=== PATIENT | female | born 2005 | race Caucasian/White ===

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

== ENCOUNTER 2024-01-13 11:05 | Outpatient (OUT) | payer OTHER, SELFPAY ==
--- OUTSIDE RECORDS SUMMARY | 2024-01-13 11:22 | XMS_ITS | CCD ---
Author Name Unknown Address [address] [place] [address] Organization [facility] Care Team Providers Care Learning And Development Specialist Name Role Phone LIEN SCOTT Admitting Unavailable LIEN SCOTT Attending Unavailable LIEN SCOTT Primary Care Unavailable LIEN SCOTT Admitting Unavailable LIEN SCOTT Attending Unavailable JUSTIN WILKS Consulting Unavailable LIEN SCOTT Consulting Unavailable Cary Pnieda Unavailable Lien Scott Unavailable Allergies Allergy Classification Reported Allergen(s) Allergy Type Date of Onset Reaction(s) Facility (2 sources) patient allergy list reviewed by nurse or physicia Propensity to adverse reactions 8 Comment:Done [facility] Other (2 sources) Allergies Reconciled Propensity to adverse reactions Unknown [facility] Other Medications Current Medications Medication Drug Class(es) Dates Sig (Normalized) Sig (Original) ondansetron 4 mg disintegrating oral tablet (2 sources) Serotonin-3 Receptor Antagonist Start: 09-29-2022 take 1 tablet by mouth every eight hours Ondansetron 4 MG ondansetron 4mg, 1 Tablet every 8 hours;nausea and vomiting # 10, 09/29/2022, No Refill. Active Oral every 8 hours;nausea and vomiting for 0 Sep, Active Triamcinolone (2 sources) Corticosteroid Start: 09-29-2022 Triamcinolone Acetonide 0.1% triamcinolone acetonide 0.1%, 1 application 3 times per day # 1, 09/29/2022, No Refill. Active topical 3 times per day for 0 *Pick strength-form from [employer] for [employer]* Sep, Active Problems Active Problems Problem Classification Problem Date Documented Da te Episodic/Chronic Coagulation and hemorrhagic disorders (2 sources) Henoch-Schonlein purpura; Translations: [Allergic purpura] Episodic Inflammation; infection of eye (except that caused by tuberculosis or sexually transmitteddisease) (2 sources) Conjunctivitis; Translations: [Unspecified conjunctivitis] Episodic Nausea and vomiting (2 sources) Nausea and vomiting; Translations: [Nausea with vomiting, unspecified] Episodic Other skin disorders (4 sources) Vesicular eczema of hands and/or feet; Translations: [Dyshidrosis] Onset: 04-28-2018 Episodic Past or Other Problems Problem Classification Problem Date Documented Date Episodic/Chronic Abdominal pain (2 sources) Abdominal pain; Translations: [Unspecified abdominal pain] Onset: 08-10-2013 Episodic Allergic reactions (2 sources) Allergy to insect protein; Translations: [Allergy to insects and arachnids] Onset: 08-07-2013 Episodic Fever of unknown origin (2 sources) Fever; Translations: [Fever, unspecified] Onset: 08-08-2013 Episodic Immunizations and screening for infectious disease (1 source) Contact with and (suspected) exposure to other viral communicable diseases Onset: 10-29-2021 Resolved: 10-29-2021 Episodic Other connective tissue disease (4 sources) Enthesopathy, unspecified; Translations: [ENTHESOPATHY UNSPECIFIED] Onset: 12-22-2018 Episodic Other connective tissue disease (2 sources) Tendinitis AND/OR tenosynovitis of wrist AND/OR hand; Translations: [Other tenosynovitis of hand and wrist] Onset: 10-25-2018 Episodic Other ear and sense organ disorders (2 sources) Acute otitis externa; Translations: [Acute swimmers' ear] Onset: 05-03-2017 Episodic Other non-traumatic joint disorders (1 source) Pain in right wrist; Translations: [PAIN IN RIGHT WRIST] Onset: 12-28-2018 Episodic Other skin disorders (2 sources) Eruption; Translations: [Rash and other nonspecific skin eruption] Onset: 08-07-2013 Episodic Other upper respiratory infections (4 sources) Acute sinusitis; Translations: [Acute sinusitis, unspecified] Onset: 02-22-2014 Episodic Residual codes; unclassified (2 sources) C/O - a back symptom; Translations: [Other symptoms referable to back] Onset: 09-04-2016 Episodic Unclassified (2 sources) Urine finding; Translations: [Other nonspecific finding on examination of urine] Onset: 11-02-2013 Unclassified (2 sources) Screening - procedure intent; Translations: [Special screening for other specified conditions] Onset: 09-04-2016 Viral infection (2 sources) Viremia; Translations: [Unspecified viremia] Onset: 08-09-2013 Episodic Viral infection (1 source) COVID-19 Onset: 10-29-2021 Resolved: 10-29-2021 Results Test Name Value Interpretation Reference Range Facil ity XR WRIST RT MIN 3 Von 2018 XR WRIST RT MIN 3 [address] [place] [address] Patient: CHER JOSE Exam Date: 12/22/2018 : 2005 Gender:F Ordering : DR LIEN SCOTT Admission #: [id number] Family : Order #: [id number] CLICK HERE TO VIEW EXAM RADIOLOGY REPORT PROCEDURE: RADIOGRAPH WRIST RIGHT MIN 3 VIEWS COMPARISON: None. INDICATIONS: Chronic right wrist pain, tendonitis of right wrist, no known injury FINDINGS: BONES: No fracture, acute abnormality, or significant arthropathy. SOFT TISSUES: No visible soft tissue swelling or radiopaque foreign body. OTHER: Negative. CONCLUSION: Normal examination for a patient of this age. Dictated by: Justin Wilks M.D. on 12/22/2018 at 22:05 Approved by: Justin Wilks M.D. on 12/22/2018 at 22:06 Normal [facility] Vital Signs Date Time Vital Sign Value Performing Clinician Facility 10-29-2021 16:15-0500 Body height 172.72 cm Cary Pineda Other [facility] Other 10-29-2021 16:15-0500 Body mass index (BMI) [Ratio] 27.37 kg/m2 Cary Pineda Other [facility] Other 10-29-2021 16:15-0500 Body temperature 99.6 [degF] Cary Pineda Other [facility] Other 10-29-2021 16:15-0500 Body weight 81.65 kg Cary Pineda Other [facility] Other 10-29-2021 16:15-0500 Respiratory rate 18 /min Cary Pineda Other [facility] Other 10-29-2021 16:15-0500 SaO2% (BldA) [Mass fraction] 99 % Cary Pineda Other [facility] Other Encounters Encounter Date Encounter Type Care Provider Facility Start: 11-11-2023 End: 11-11-2023 ambulatory Lien Scott Other [facility] Other Start: 11-11-2023 Telephone encounter Lien Scott [facility] Start: 09-06-2023 End: 09-06-2023 ambulatory Lien Scott Other [facility] Other Start: 09-06-2023 Encounter for genera l adult medical examination without abnormal findings Lien Scott [facility] Start: 09-06-2023 Telephone encounter Lien Scott [facility] Start: 09-29-2022 Child health medical examination Lien Scott Other [facility] Other Start: 10-29-2021 (URG) Urgent Care Visit Cary rocha [facility] Start: 10-29-2021 End: 10-29-2021 ambulatory Cary Fregsoomond Other [facility] Other Start: 12-22-2018 End: 12-23-2018 Patient encounter procedure LIEN SCOTT Facility:[facility] Start: 12-22-2018 End: 07-06-2019 Patient encounter procedure LIEN SCOTT Facility:[facility] Immunizations Immunization Date Immunization Notes Care Provider Fa cili 09-27-2022 influenza virus vaccine, split virus (incl. purified surface antigen) Lien Scott Other [facility] Other Payers Date Payer Category Payer Unknown [id number] 1977 Unknown [id number] 1959 Unknown [id number] Social History Date Type Detail Facility Sex Assigned At [facility] Other Evaluation note 09-06-2023 Note Date & Type Note Facility 09-06-2023 Evaluation note Encounter Date Diagnosis Assessment Notes Aug, Encounter for general adult medical examination without abnormal findings (ICD-10 - Z00.00) [facility] Other Evaluation note 10-29-2021 Note Date & Type Note Facility 10-29-2021 Evaluation note Encounter Date Diagnosis Assessment Notes Oct, Contact with and (suspected) exposure to other viral communicable diseases (ICD-10 - Z20.828) Oct, COVID-19 (ICD-10 - U07.1) Drink plenty fluids, get plenty of rest. Tylenol Motrin for aches pains or fevers. You must self isolate for 10 days after the onset of your symptoms. Follow-up with your family physician if no improvement in 2 to 3 days Oct, Other Additional time spent conducting pre-visit phone call, screening for symptoms, instructions on social distancing, application and removal of PPE, and cleaning of examination room, equipment and supplies was preformed. Patient education given for testing methodology and results. Patient care instructions given in writting by [facility] Care At Home document. [facility] Other Evaluation note Note Date & Type Note Facility Evaluation note No Information [facility] Other History general Narrative - Reported Note Date & Type Note Facility History general Narrative - Reported Type Medical History Heart Murmur [facility] Other History general Narrative - Reported Note Date & Type Note Facility History general Narrative - Reported Type Medical History Heart Murmur Surgical History Problem Title : past surgical history reviewed, Problem Description : past surgical history reviewed, Problem Comment : reviewed - no changes required, Problem Status : Active, [facility] Other Summary Purpose Family History No Family History Records Found Advance Directives No Advanced Directives Records Found Additional Source Comments INFORMATION SOURCE (unrecogn ized section and content) DATE CREATED AUTHOR 07/06/2019 [employer] REASON FOR VISIT (unrecogniz ed section and content) #26 SILVER EXPLORERmessagehe p b titer FOR RECORDS PERTAINING TO PATIENTS WHO ARE OR HAVE BEEN ENROLLED IN A CHEMICAL DEPENDENCY/SUBSTANCEABUSE PROGRAM, SOME INFORMATION MAY BE OMITTED. This clinical summary was aggregated from multiple sources. Caution should be exercised in using it in the provision of clinical care. This summary normalizes information from multiple sources, and as a consequence, information in this document may materially change the coding, format and clinical context of patient data. In addition, data may be omitted in some cases. CLINICAL DECISIONS SHOULD BE BASED ON THE PRIMARY CLINICAL RECORDS. [facility] [employer] [facility]. provides no warranty or guarantee of the accuracy or completeness of information in this document.
== END 2024-01-13 11:06 | disposition home or self-care (01) ==
LOC: LAB 11:06
PROVIDERS: PCP Family Medicine; Visit Provider Family Medicine
DX: Z00.00 Encounter for general adult medical examination without abnormal findings (principal)
CPT/HCPCS: 36415; 86317

== ENCOUNTER 2024-02-14 10:54 | Outpatient (OUT) | payer OTHER, SELFPAY ==
--- OUTSIDE RECORDS SUMMARY | 2024-02-14 10:59 | XMS_ITS | CCD ---
Author Organization [facility] Care Team Providers Care Communications Electrician Supervisor Name Role Phone LIEN SCOTT Admitting Unavailable LIEN SCOTT Attending Unavailable LIEN SCOTT Primary Care Unavailable LIEN SCOTT Admitting Unavailable LIEN SCOTT Attending Unavailable ERICA WILKS Consulting Unavailable LIEN SCOTT Consulting Unavailable Cary Pineda Unavailable Lien Scott Unavailable Allergies Allergy Classification Reported Allergen(s) Allergy Type Date of Onset Reaction(s) Facility (2 sources) patient allergy list reviewed by nurse or physicia Propensity to adverse reactions Comment:Done [facility] [facility] Other (2 sources) Allergies Reconciled Propensity to adverse reactions Unknown [facility] Other Medications Current Medications Medication Drug Class(es) [...] per day for 0 *Pick strength-form from [employer] for eRX* Sep, Active Problems Active Problems [...] 2018 XR WRIST RT MIN [address] [place] [address] Patient: CHER JOSE Exam Date: 12/22/2018 : 2005 Gender:F Ordering : DR LIEN SCOTT Admission #: [id number] Family : Order #: [id number] CLICK HERE TO VIEW EXAM RADIOLOGY REPORT PROCEDURE: RADIOGRAPH WRIST RIGHT MIN 3 VIEWS COMPARISON: None. INDICATIONS: Chronic right wrist pain, tendonitis of right wrist, no known injury FINDINGS: BONES: No fracture, acute abnormality, or significant arthropathy. SOFT TISSUES: No visible soft tissue swelling or radiopaque foreign body. OTHER: Negative. CONCLUSION: Normal examination for a patient of this age. Dictated by: Erica Wilks M.D. on 12/22/2018 at 22:05 Approved by: Erica Wilks M.D. on 12/22/2018 at 22:06 Normal [facility] Vital Signs Date Time Vital Sign Value Performing Clinician Facility 10-29-2021 16:15-0500 Body height 172.72 cm Cary Pineda Other [employer] [facility] Other 10-29-2021 16:15-0500 Body mass index (BMI) [Ratio] 27.37 kg/m2 Cary Pineda Other [employer] [facility] Other 10-29-2021 16:15-0500 Body temperature 99.6 [degF] Cary Pineda Other [facility] Other 10-29-2021 16:15-0500 Body weight 81.65 kg Cary Pineda Other [employer] [facility] Other 10-29-2021 16:15-0500 Respiratory rate 18 /min Cary Pineda Other [employer] Other 10-29-2021 16:15-0500 SaO2% (BldA) [Mass fraction] 99 % Cary Pineda Other [employer] Other Encounters Encounter Date Encounter Type Care Provider Facility Start: 11-11-2023 End: 11-11-2023 ambulatory Lien Scott Other [employer] Other Start: 11-11-2023 Telephone encounter Lien Scott [facility] Start: 09-06-2023 End: 09-06-2023 ambulatory Lien Scott Other [employer] Other Start: 09-06-2023 Encounter for genera l adult medical examination without abnormal findings Lien Scott [facility] Start: 09-06-2023 Telephone encounter Lien Scott [facility] Start: 09-29-2022 Child health medical examination Lien Scott Other [employer] Other Start: 10-29-2021 (URG) Urgent Care Visit Cary rocha [facility] Start: 10-29-2021 End: 10-29-2021 ambulatory Cary Miriam Other [employer] Other Start: 12-22-2018 End: 12-23-2018 Patient encounter procedure LIEN SCOTT Facility:[facility] Start: 12-22-2018 End: 07-06-2019 Patient encounter procedure LIEN SCOTT Facility:[facility] Immunizations Immunization Date Immunization Notes Care Provider Fa cili 09-27-2022 influenza virus vaccine, split virus (incl. purified surface antigen) Lien Scott Other [employer] [facility] Other Payers Date Payer Category Payer Unknown [id number] 1977 Unknown [id number] 1960 Unknown [id number] Social History Date Type Detail Facility Sex Assigned At [employer] [facility] Other Evaluation note 09-06-2023 Note Date & Type Note Facility 09-06-2023 Evaluation note Encounter Date Diagnosis Assessment Notes Aug, Encounter for general adult medical examination without abnormal findings (ICD-10 - Z00.00) [employer] Other Evaluation note 10-29-2021 Note Date & [...] Patient care instructions given in writting by [facility] Care At Home document. [employer] Other Evaluation note Note Date & Type Note Facility Evaluation note No Information [employer] Other History general Narrative - Reported Note Date & Type Note Facility History general Narrative - Reported Type Medical History Heart Murmur [employer] Other History general Narrative - Reported Note Date & Type Note Facility History general Narrative - Reported Type Medical History Heart Murmur Surgical History Problem Title : past surgical history reviewed, Problem Description : past surgical history reviewed, Problem Comment : reviewed - no changes required, Problem Status : Active, [employer] Other Summary Purpose Family History No Family [...] BE BASED ON THE PRIMARY CLINICAL RECORDS. [employer]. provides no warranty or guarantee of the accuracy or completeness of information in this document.
[2024-02-15 07:09] LABS: Varicella-Zoster V Ab, IgG 1593 index (Immune >165)
== END 2024-02-14 10:55 | disposition home or self-care (01) ==
PROVIDERS: PCP Family Medicine; Visit Provider Family Medicine
DX: Z02.0 Encounter for examination for admission to educational institution (principal)
CPT/HCPCS: 36415; 86787